=== PATIENT | female | born 2000 | race Caucasian/White ===

== ENCOUNTER 2021-06-05 17:47 | Emergency (ER) | payer OTHER ==
[~2021-06-05] VITALS: Ht 152.4 cm; Wt 77.3 kg
[2021-06-05] MEDS ORDERED: BACTRIM DS 8001 TAB PO (19:20)
[2021-06-05] MEDS ORDERED: HIBICLENS4% TP (19:20)
[2021-06-05 19:40] VITALS: BP 128/64; PULSE 84; TEMP 97.2
== END 2021-06-05 19:40 | disposition home or self-care (01) ==
LOC: COL.ER 17:47
DX: L03.311 Cellulitis of abdominal wall (principal); Q90.9 Down syndrome, unspecified
CPT/HCPCS: J2250